=== PATIENT | female | born 1995 | race Caucasian/White ===

== ENCOUNTER 2019-12-12 08:28 | Emergency (ER) | payer OTHER, SELFPAY ==
[2019-12-12 08:57] VITALS: BP 100/81; PULSE 62; RESP 16; TEMP 37.1; O2SAT 100
--- NOTE | 2019-12-12 09:12 | ED.FEMALEGU ---
HPI - Female Genitourinary General Chief complaint: Urogenital-Female Stated complaint: UTI History of Present Illness HPI Narrative: This is a 24 year old female that comes in complaining of urine frequency and burning that has been going on for the past 2-3 days Patient states she has been taking pyridumbut she is still burning Related Data Home Medications Medication Instructions Recorded Confirmed No Home Medications 12/12/19 12/12/19 Allergies Allergy/AdvReac Type Severity Reaction Status Date / Time amoxicillin Allergy Mild Hives Verified 12/12/19 09:13 Review of Systems Review of Systems: Narrative: CONSTITUTIONAL: Denies fever, chills, or sweats. EYES: Denies visual changes, redness, or discharge. ENT: Denies rhinorrhea, congestion, sore throat, or otalgia. CARDIOVASCULAR:Denies chest pain, palpitations, or edema. RESPIRATORY: Positive cough or dyspnea. GASTROINTESTINAL: Denies abdominal pain, nausea, vomiting, or diarrhea. GENITOURINARY: Denies dysuria or hematuria. SKIN:[Denies rash or itching. MUSCULOSKELETAL:Denies back pain, joint pain, or myalgia. NEUROLOGIC: Denies headache, numbness, or weakness. PSYCHIATRIC:Denies anxiety or depression PMFSH Comments At time as signature, I have reviewed and agree with nursing past medical, social, surgical and family history. Please see nursing chart for further information. There is no relevant family history pertinent to the presenting complaint. Exam Narrative: Exam Narrative: GENERAL:Well-appearing, well-nourished, and in no acute distress. HEAD:Normocephalic, atraumatic. EYES: PERRLA and EOMI. ENT: Nares clear, no rhinorrhea or epistaxis. Mucous membranes moist. NECK: Supple. CHEST: Clear to auscultation. No respiratory distress. HEART: Regular rate and rhythm. No murmur heard. Normal peripheral pulses. ABDOMEN: Soft, nontender, nondistended, normal active bowel sounds. frequency and dysuria EXTREMITIES: Normal range of motion. No edema. SKIN: Warm, dry, no rash. NEURO: No focal deficits. Alert and oriented x3. Course Vital Signs Vital signs: Vital Signs Temperature 98.8 F 12/12/19 08:57 Pulse Rate 62 12/12/19 08:57 Respiratory Rate 16 12/12/19 08:57 Blood Pressure 100/81 12/12/19 08:57 Pulse Oximetry 100 12/12/19 08:57 Temperature 98.8 F 12/12/19 08:57 Pulse Rate 62 12/12/19 08:57 Respiratory Rate 16 12/12/19 08:57 Blood Pressure 100/81 12/12/19 08:57 Pulse Oximetry 100 12/12/19 08:57 Discharge Plan Discharge Clinical Impression: Urinary tract infection Patient Disposition: Home, Self-Care Condition: Stable Instructions: Antibiotic Form, Urinary Tract Infection in Women (DC), Dysuria (ED) Additional Instructions: Make sure you avoid caffeine as much as possible Urinate immediately after intercourse Drink plenty of water Wipe front to back Prescriptions: New nitrofurantoin monohyd/m-cryst [Macrobid] 100 mg capsule 100 mg PO Q12H 5 Days Qty: 10 RF: 0 No Action No Home Medications RF: 0 Follow-up/Referrals: UNKNOWN,DOCTOR [Primary Care Provider] - Time of Disposition: 09:14
== END 2019-12-12 09:15 | disposition home or self-care (01) ==
PROVIDERS: Emergency Provider Nurse Practitioner Family
DX: N39.0 Urinary tract infection, site not specified (principal)
CPT/HCPCS: 81003; 87077; 87086; 87088; 87186; 99203; G0463

== ENCOUNTER 2019-12-15 15:17 | Emergency (ER) | payer OTHER, SELFPAY ==
--- NOTE | 2019-12-15 15:29 | ED.FEMALEGU ---
HPI - Female Genitourinary General Chief complaint: [employer] Stated complaint: med reaction History of Present Illness HPI Narrative: This is a 24 year old that was here three days ago for UTI patient stopped medication after two days because she had some discharge and itchiness and started on Monistat cream but she is still having burning and pain. Related Data Allergies Allergy/AdvReac Type Severity Reaction Status Date / Time amoxicillin Allergy Mild Hives Verified 12/15/19 15:42 Review of Systems Review of Systems: Narrative: CONSTITUTIONAL: Denies fever, chills, or sweats. EYES: Denies visual changes, redness, or discharge. ENT: Denies rhinorrhea, congestion, sore throat, or otalgia. CARDIOVASCULAR:Denies chest pain, palpitations, or edema. RESPIRATORY: Denies cough or dyspnea. GASTROINTESTINAL: Denies abdominal pain, nausea, vomiting, or diarrhea. GENITOURINARY: reports dysuria or hematuria. with white discharge SKIN:[Denies rash or itching. MUSCULOSKELETAL:Denies back pain, joint pain, or myalgia. NEUROLOGIC: Denies headache, numbness, or weakness. PSYCHIATRIC:Denies anxiety or depression PMFSH Comments At time as signature, I have reviewed and agree with nursing past medical, social, surgical and family history. Please see nursing chart for further information. There is no relevant family history pertinent to the presenting complaint. Exam Narrative: Exam Narrative: GENERAL:Well-appearing, well-nourished, and in no acute distress. HEAD:Normocephalic, atraumatic. EYES: PERRLA and EOMI. ENT: Nares clear, no rhinorrhea or epistaxis. Mucous membranes moist. NECK: Supple. CHEST: Clear to auscultation. No respiratory distress. HEART: Regular rate and rhythm. No murmur heard. Normal peripheral pulses. ABDOMEN: Soft, nontender, nondistended, normal active bowel sounds. Dysuria with hematuria and drainage patient cultures back medication is effective treatment discussed with patient that she needs to finish her medication we will order her some Diflucan explained the importance of not stopping the medication. EXTREMITIES: Normal range of motion. No edema. SKIN: Warm, dry, no rash. NEURO: No focal deficits. Alert and oriented x3. Course Course Emergency Course: Patient is aware of diagnosis, understands and agrees to treatment plan. Anticipatory guidance given. Patient agrees to follow-up as directed and is aware of reasons to seek care at the emergency department. Vital Signs Vital signs: Vital Signs Temperature 98.3 F 12/15/19 15:33 Pulse Rate 69 12/15/19 15:33 Respiratory Rate 20 12/15/19 15:33 Blood Pressure 127/85 12/15/19 15:33 Pulse Oximetry 100 12/15/19 15:33 Temperature 98.3 F 12/15/19 15:33 Pulse Rate 69 12/15/19 15:33 Respiratory Rate 20 12/15/19 15:33 Blood Pressure 127/85 12/15/19 15:33 Pulse Oximetry 100 12/15/19 15:33 MDM - Female Genitourinary Differential Diagnosis Differential diagnosis: Likely urinary tract infection, bacterial vaginosis, vaginitis, cystitis and dysmenorrhea Discharge Plan Discharge Clinical Impression: UTI (urinary tract infection) Qualifiers: Urinary tract infection type: site unspecified Hematuria presence: with hematuria Qualified Code(s): N39.0 - Urinary tract infection, site not specified Patient Disposition: Home, Self-Care Condition: Stable Instructions: Antibiotic Form, Urinary Tract Infection in Women (ED), Yeast Infection (ED), Dysuria (ED) Prescriptions: New fluconazole [Diflucan] 150 mg tablet 150 mg PO DAILY Qty: 1 RF: 0 phenazopyridine [Pyridium] 100 mg tablet 100 mg PO TID PRN (Reason: pain) 3 Days Qty: 9 RF: 0 fluconazole [Diflucan] 150 mg tablet 150 mg PO ONCE Qty: 2 RF: 0 nitrofurantoin monohyd/m-cryst [Macrobid] 100 mg capsule 100 mg PO Q12H 2 Days Qty: 4 RF: 0 No Action nitrofurantoin monohyd/m-cryst [Macrobid] 100 mg capsule 100 mg PO Q12H 5 Days Qty: 10 RF: 0 Follow-u
[2019-12-15 15:33] VITALS: BP 127/85; PULSE 69; RESP 20; TEMP 36.8; O2SAT 100
== END 2019-12-15 16:00 | disposition home or self-care (01) ==
PROVIDERS: Emergency Provider Nurse Practitioner Family
DX: N39.0 Urinary tract infection, site not specified (principal)
CPT/HCPCS: 99213; G0463